=== PATIENT | female | born 1990 | race Hispanic/Latino ===

== ENCOUNTER 2022-12-17 05:30 | Inpatient (IN) | payer MEDICAID, OTHER, SELFPAY ==
[2022-12-17 06:09] VITALS: BMI 34.7
[2022-12-17] MEDS ORDERED: hydrALAZINE 20 MG/ML VIAL SLOW IVP PRN ×2 (06:51→16:57)
[2022-12-17] MEDS ORDERED: Tranexamic Acid 1,000 MG/10 ML VIAL IVP PRN (06:51)
[2022-12-17] MEDS ORDERED: Ondansetron PF 4 MG/2 ML Vial IVP PRN (06:51)
[2022-12-17] MEDS ORDERED: Methylergonovine 0.2 MG/ML VIAL IM PRN (06:51)
[2022-12-17] MEDS ORDERED: Misoprostol 200 MCG TAB PR PRN (06:51)
[2022-12-17] MEDS ORDERED: Diphenoxylate HCl/Atropine Tablet PO PRN (06:51)
[2022-12-17] MEDS ORDERED: Carboprost 250 MCG/ML AMP IM PRN (06:51)
[2022-12-17] MEDS ORDERED: Promethazine HCl 25 MG/ML VIAL IM PRN (06:51)
[2022-12-17] MEDS ORDERED: Ibuprofen 800 MG TAB PO PRN (06:51)
[2022-12-17] MEDS ORDERED: Lidocaine 1% (PF) 30 ML VIAL SC PRN (06:51)
[2022-12-17] MEDS ORDERED: NS w/ Oxytocin 30 units 500 ML IV SCH ×2 (07:00)
[2022-12-17 09:59] LABS: White Blood Cell (WBC) Count 7.8 10x3/uL (3.5-10.5)
[2022-12-17 10:00] LABS: Hemoglobin 10.9 g/dL (12.0-15.5); Mean Corpuscular HGB CONC 32.1 g/dL (32.0-36.0); Mean Corpuscular Hemoglobin 26.1 pg (27.0-33.0); Mean Corpuscular Volume 81.5 fl (81.6-98.3); Mean Platelet Volume 11.9 fl (7.4-10.4); Platelet Count 318 10x3/uL (130-400); RBC Distribution Width 13.6 % (11.5-14.5); Red Blood Cell (RBC) Count 4.17 10x6/uL (3.90-5.03)
[2022-12-17 10:54] LABS: Syphilis Antibody Nonreactive (Nonreactive)
[2022-12-17 10:55] LABS: HBSAg Index 0.17 S/CO (0-0.99); Hep B Surf Ag - L&D Non-Reactive S/CO (NonReactive); Syphilis Antibody Index 0.04 S/CO (<1.00 Non-Reactive)
[2022-12-17] MEDS ORDERED: fentaNYL 50 mcg/mL 1 mL Vial SLOW IVP SCH (16:00)
[2022-12-17] MEDS: Lactated Ringer's 1,000 ML IV SCH (16:20)
[2022-12-17] MEDS ORDERED: Bisacodyl 10 MG SUPP PR PRN (16:57)
[2022-12-17] MEDS ORDERED: Milk Of Magnesia 30 ML UDCUP PO PRN (16:57)
[2022-12-17] MEDS ORDERED: Benzocaine-Menthol 82.5 ML CAN TOP PRN (16:57)
[2022-12-17] MEDS ORDERED: Boostrix 0.5 ML (Tdap) VIAL (>/=7 yrs of age) IM ONE (16:57)
[2022-12-17] MEDS: Ferrous Sulfate 325 MG TAB PO SCH (19:12)
[2022-12-17] MEDS: Docusate 100 MG CAP PO SCH (19:27)
[2022-12-17] MEDS ORDERED: HYDROcodone/Acetaminophen 5/325 mg Tablet PO SCH (20:15)
[2022-12-17] MEDS ORDERED: Ibuprofen 800 MG TAB PO SCH (22:00)
[2022-12-17] MEDS: Acetaminophen 325 MG TAB PO SCH (22:27)
[2022-12-18] MEDS: Ibuprofen 800 MG TAB PO SCH ×3 (02:07→18:46)
[2022-12-18 04:21] LABS: Hematocrit 31.7 % (34.9-44.5); Hemoglobin 10.3 g/dL (12.0-15.5)
[2022-12-18] MEDS: Acetaminophen 325 MG TAB PO SCH ×4 (04:32→20:26)
[2022-12-18] MEDS: Ferrous Sulfate 325 MG TAB PO SCH ×2 (07:31→18:46)
[2022-12-18] MEDS ORDERED: Prenatal Vitamin 1 TAB PO SCH (09:00)
[2022-12-18] MEDS: Docusate 100 MG CAP PO SCH (09:23)
[2022-12-18] MEDS: Lactated Ringer's 1,000 ML IV SCH (09:34)
[2022-12-18 21:09] VITALS: BP 132/60; TEMP 98.5
== END 2022-12-18 20:45 | disposition home or self-care (01) | DRG 807 ==
LOC: CSHLD 05:44 → CSHPP 18:25
PROVIDERS: ADMIT Student in an Organized Health Care Education/Training Program; ATTEND Student in an Organized Health Care Education/Training Program
PROC: 10E0XZZ Delivery of Products of Conception, External Approach (ICD-10-PCS; principal; 2022-12-17)
DX: O24.420 Gestational diabetes mellitus in childbirth, diet controlled (principal); Z37.0 Single live birth; Z3A.39 39 weeks gestation of pregnancy; O62.3 Precipitate labor
CPT/HCPCS: 36415; 85014; 85018; 85027; 86780; 86850; 86900; 86901; 87340; J2590; J3010; J7120